=== PATIENT | male | born 1960 | race Caucasian/White ===

== ENCOUNTER 2017-08-02 16:35 | Emergency (ER) | payer SELFPAY ==
[~2017-08-02] VITALS: Ht 175.2 cm; Wt 86.2 kg
[~2017-08-02 16:35] MED LIST: NKHM; PERCOCET 325 MG1 TA2 PO
[2017-08-02] MEDS ORDERED: NORCO 5-325 TA1 EACH PO (18:06)
== END 2017-08-02 18:13 | disposition home or self-care (01) ==
LOC: ED 16:35
DX: S43.014A Anterior dislocation of right humerus, initial encounter (principal); Z90.89 Acquired absence of other organs; W01.198A Fall on same level from slipping, tripping and stumbling with subsequent striking against other object, initial encounter; Y93.89 Activity, other specified; Y92.89 Other specified places as the place of occurrence of the external cause; Y99.9 Unspecified external cause status